=== PATIENT | male | born 1940 | race Caucasian/White ===

== ENCOUNTER 2020-07-29 06:15 | Inpatient (IN) | payer MEDICARE, OTHER ==
[~2020-07-29 06:15] MED LIST: ASPIRIN CHEWABL81 MG PO; ASPIRIN EC81 MG PO; ASPIRIN325 MG PO; CENTRUM SILVER1 EAC5 PO; DIAZEPAM 5MG TAB5 MG PO; FLOMAX0.4 MG PO; GLUCOSAMINE &1 EAC1 PO; MOBIC7.5 MG PO; MSM500 MG PO; PROBIOTIC1 EAC2 PO; TRAMADOL HCL50 MG PO; TUMERIC PO; TYLENOL ARTHRI650 MG PO; VITAMIN D32000 UNI1 PO
[2020-07-29] MEDS ORDERED: PERCOCET 7.5/321 TAB PO (12:30)
[2020-07-30 07:06] LABS: BASOPHIL 0.1 % (0-2); EOSINOPHIL 0.1 % (0-7); HCT 33.3 % (42.0-52.0); HGB 10.7 g/dl (13.2-18.0); LYMPHOCYTE 5.1 % (15-48); MCH 30.2 pg (25.0-31.0); MCHC 32.1 g/dL (32.0-36.0); MCV 94.1 fL (78.0-100.0); MONOCYTE 8.8 % (0-12); MPV 9.8 fL (6.0-9.5); NEUTROPHIL 85.5 % (41-80); NRBC 0; PLT 182 K/uL (150-400); RBC 3.54 M/uL (4.70-6.00); RDW 13.4 % (11.5-14.0)
[2020-07-30 07:28] LABS: BUN/CREAT RATIO (CALC) 21.3 RATIO; CREATININE 0.94 mg/dL (0.67-1.17); POTASSIUM 4.2 mmol/L (3.5-5.1)
[2020-07-30] MEDS ORDERED: PANTOPRAZOLE SO40 MG PO (08:45)
[2020-07-30] MEDS ORDERED: XARELTO10 MG PO (08:45)
[2020-07-30] MEDS ORDERED: FEOSOL325 MG PO (08:45)
--- NOTE | 2020-07-30 12:28 | NUR ---
PT. TO D/C HOME. PT. HAS A ROLLING WALKER. PT REQUESTED [facility] [phone] FOR HH FOR PT/OT AND NURSING ASSESSMENT. CALLED [facility] PT. JOSEPHINE WILL COPAY WILL BE $9.20. ADVISED PT. OF COST. PT. HAS NOW REQUESTED A 09/23. ORDER SENT TO [facility]. FAMILY WILL MANAGER [facility] 09/[address]
== END 2020-07-30 12:30 | disposition home health service (06) | DRG 470 ==
LOC: FSDC 06:15 → FMS 10:33
PROVIDERS: ADMIT Legal Medicine
PROC: 0SR903A Replacement of Right Hip Joint with Ceramic Synthetic Substitute, Uncemented, Open Approach (ICD-10-PCS; principal; 2020-07-29 08:30)
DX: M16.11 Unilateral primary osteoarthritis, right hip (principal); F41.9 Anxiety disorder, unspecified; I95.81 Postprocedural hypotension; N40.0 Benign prostatic hyperplasia without lower urinary tract symptoms; T41.45XA Adverse effect of unspecified anesthetic, initial encounter; Z98.890 Other specified postprocedural states; Z91.041 Radiographic dye allergy status; Z79.82 Long term (current) use of aspirin; Z87.891 Personal history of nicotine dependence; Z96.612 Presence of left artificial shoulder joint; G47.33 Obstructive sleep apnea (adult) (pediatric)
CPT/HCPCS: 36415; 73501; 76000; 80048; 85025; 86850; 86900; 86901; 94010; 94762; 97110; 97116; 97162; 97166; 97530-GP; 97535; C1776; J0171; J0697; J1170; J1885; J2250; J2270; J2405; J2704; J2710; J2795; J3010; J7120